=== PATIENT | female | born 1950 | race African-American/Black ===

== ENCOUNTER 2019-02-09 16:02 | Emergency (ER) | payer OTHER ==
[~2019-02-09] VITALS: Ht 167.6 cm; Wt 66.0 kg
[2019-02-09 16:11] VITALS: BP 119/72
== END 2019-02-09 16:41 | disposition home or self-care (01) ==
LOC: ER 16:02
DX: M25.512 Pain in left shoulder (principal); M19.90 Unspecified osteoarthritis, unspecified site; Z88.0 Allergy status to penicillin
CPT/HCPCS: 99282